=== PATIENT | female | born 1940 | race Caucasian/White ===

== ENCOUNTER 2023-11-05 13:28 | Outpatient (CLI) | payer MEDICARE, BC, SELFPAY ==
[2023-11-05 13:47] LABS: Basophils Absolute Auto 0.06 K/uL (0.00-0.30); Basophils Percent Auto 0.7 % (0.0-3.0); Eosinophils Absolute Auto 0.35 K/uL (0.00-0.50); Hematocrit 31.6 % (33.0-51.0); Hemoglobin* 10.1 gm/dL (12.0-16.0); Immature Granulocytes Abs Auto 0.04 K/uL (0.00-0.30); Immature Granulocytes Pct Auto 0.5 %; Lymphocytes Percent Auto 11.7 % (20-44); Mean Corpuscular HGB Conc 32 gm/dL (32-36); Mean Corpuscular Hemoglobin 30 pg (26-34); Mean Corpuscular Volume 95 fL (80-100); Monocytes Percent Auto 8.4 % (0.0-11.0); Neutrophils Percent Auto 74.7 % (42.0-72.0); Platelet Count* 334 K/uL (140-440); RDW Coefficient of Variation % 13.8 % (11.5-15.5); Red Blood Count 3.32 m/uL (4.00-5.20); White Blood Count* 8.66 K/uL (4.50-11.00)
[2023-11-05 14:08] LABS: Slide Review Reflex No
== END 2023-11-05 13:29 | disposition home or self-care (01) ==
PROVIDERS: Visit Provider Radiology Radiation Oncology
DX: C03.1 Malignant neoplasm of lower gum (principal)
CPT/HCPCS: 36415; 85025

== ENCOUNTER 2023-12-04 15:17 | Outpatient (CLI) | payer MEDICARE, BC, SELFPAY ==
--- NOTE | 2023-12-04 15:30 | PE_ITS ---
[facility] [address] [facility] [address] Phone:?[phone] Fax:?[phone] Referring Physician Information: Mayte Mckeon [address] [facility] [address] Phone:?[phone] Fax:?[phone] Patient:Holly Mack D.O.B:?1940 Sex:?Female Phone:?[phone] [facility] MRN:?[id number] Exam Date:?12/04/2023 PROCEDURE: PET/CT VERTEX TO THIGHS, CANCER RESTAGING CLINICAL INFORMATION: Squamous cell carcinoma, restaging. TECHNICAL INFORMATION: Helical acquisition of data was obtained from the vertex to the thighs with reconstruction of 3.75 mm thick images at 3.[address] data was used for attenuation correction. PET scanning was performed through the same anatomic range 60 minutes following administration of 11.8 mCi of 18-FDG delivered intravenously. The patient's glucose at the time of the injection was 112 mg/dL. PET, CT and PET/CT fusion images are interpreted using a computer viewing workstation. PET, CT and PET/CT fusion images were archived and saved in the patient's permanent medical record. COMPARISON: PET/CT from 07/01/2023. INTERPRETATION: Head and Neck: As before, there is a markedly hypermetabolic (SUVmax = 11.08, previously 19.3), erosive mass lesion involving the left posterior mandible, with erosive changes at the left mandibular body. 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 Pathologic left level 2 lymph node (Se 2 Im 66) has indistinct margins, but measures roughly 2.6 x 1.6 cm with maximum SUV of 9.85, previously 1.2 x 0.6 cm with maximum SUV of 2.5. Patulous esophagus is similar to before, suggesting diffuse dysmotility, achalasia, or scleroderma. No hypermetabolic stricture detected. Avid FDG uptake (SUVmax = 8.82) redemonstrated in both thyroid lobes, without focal abnormality. There is physiologic uptake in the intracranial soft tissues. Chest: There are no abnormal hypermetabolic foci within the chest. Background mediastinal blood pool uptake has a maximum SUV of 2.98. No lung nodules or masses detected on this free-breathing exam. No lymphadenopathy detected. Abdomen and Pelvis: A nonenlarged left inguinal lymph node (Se 2 Im 271) measures 0.7 x 0.7 cm with a maximum SUV of 5.86, indeterminate. There are no other abnormal hypermetabolic foci within the abdomen or pelvis. Background hepatic parenchymal uptake has a maximum SUV of 3.55. There is physiologic excretion of radiotracer in the urine and bowel. Skeleton, Musculature, and Integument: No abnormal hypermetabolic foci within the skeleton. No den osteoblastic or osteolytic disease. Old T12 compression deformity redemonstrated. CONCLUSION: 1. Persistent, marked hypermetabolism within an osteolytic left mandibular lesion, consistent with known squamous cell carcinoma. 2. Interval growth and increased hypermetabolism within a solitary malignant left level 2 lymph node, indexed above. No other worrisome cervical lymph nodes. 3. No convincing distant metastasis. A nonenlarged but moderately hypermetabolic left inguinal lymph node is indeterminate. Consider targeted ultrasound for possible FNA, if the node can be identified sonographically. 4. Possible thyroiditis, as before. 5. Patulous esophagus, suggesting dysmotility, achalasia, or scleroderma. No hypermetabolic stricture detected. MFM: Electronically signed on 12/05/2023 4:33:00 PM by Santo Gee M.D.
--- NOTE | 2024-01-05 14:31 | ONC.NURNOTE ---
received a call from Taya Miles, she stated that she is on hospice and wanted to cancel her 01/12/[address] Joshi. canceled her appointment.
== END 2023-12-04 15:18 | disposition home or self-care (01) ==
PROVIDERS: Visit Provider Physician Assistant
DX: C03.1 Malignant neoplasm of lower gum (principal)
CPT/HCPCS: 78815; A9552

== ENCOUNTER 2024-01-12 11:30 | Outpatient (RCR) | payer MEDICARE, BC, SELFPAY | END 2024-04-19 23:59 | disposition home or self-care (01) | LOC: CCIC 11:30 | PROVIDERS: Visit Provider Internal Medicine Hematology & Oncology | DX: C41.1 Malignant neoplasm of mandible (principal) | CPT/HCPCS: 99202; 99205; 99212 ==